=== PATIENT | male | born 1955 | race African-American/Black ===

== ENCOUNTER 2023-03-23 14:34 | Outpatient (REF) | payer MEDICARE, SELFPAY ==
[2023-03-23 15:20] LABS: Ammonia 46 umol/L (13-55)
[2023-03-23 15:35] LABS: Valproate 72.3 mcg/mL (50.0-100.0)
[2023-03-25 18:53] LABS: Levetiracetam Keppra 13.9 mcg/mL (6.0-46.0)
== END 2023-03-23 14:35 | disposition home or self-care (01) ==
LOC: HO.LAB 14:34
PROVIDERS: Visit Provider Psychiatry & Neurology Neurology
DX: G40.909 Epilepsy, unspecified, not intractable, without status epilepticus (principal); Z79.899 Other long term (current) drug therapy
CPT/HCPCS: 36415; 80164; 80177; 82140

== ENCOUNTER 2025-01-15 09:20 | Outpatient (AMB) | payer MEDICARE, SELFPAY ==
--- NOTE | 2025-01-15 09:37 | MHC.OFFVIS ---
Intake Visit Reasons: 6mnth/epilepsy Allergies No Known Allergies (No Known Allergies*) Allergy (Unverified 01/15/25 09:38) Medication List - Last Reconciled 01/15/25 by Mireille Montenegro CNP divalproex ER 500 mg PO BID levetiracetam 500 mg PO BID HPI Comments Details: 69-year-old man with epilepsy of unknown etiology with generalized seizures since was a teenage. Last seizure was in early 2023 after missing some doses of medication. He was doing okay. He was taking levetiracetam and Depakote twice a day. No missed doses or medication side effects. No seizures. Sleep was okay. Review of Systems Const Denies chills, Denies daytime sleepiness, Denies difficulty sleeping, Denies fatigue, Denies fever(s), Denies frequent falls, Denies headache(s), Denies increased appetite, Denies poor appetite, Denies snoring, Denies weakness, Denies weight gain and Denies weight loss Eyes Denies loss of vision ENT Denies vertigo, Denies dizziness and Denies headache(s) Card Denies chest pain at rest, Denies chest pain with activity, Denies syncope, Denies leg edema and Denies palpitations Resp Denies snoring GI Denies constipation, Denies heartburn, Denies diarrhea and Denies nausea Denies urinary frequency, Denies urinary incontinence and Denies urinary urgency Musc Denies abnormal gait, Denies numbness and Denies tingling Skin/Breast Denies dry skin and Denies rash Neuro Denies abnormal gait, Denies vertigo, Denies dizziness, Denies syncope, Denies frequent falls, Denies headache(s), Denies lack of coordination, Denies loss of vision, Denies memory loss, Denies numbness, Denies restless legs, Denies seizure-like activity, Denies tingling, Denies paresthesias, Denies tremor(s) and Denies weakness Psych Denies anxiety, Denies depression, Denies auditory hallucinations, Denies memory loss, Denies visual hallucinations and Denies suicidal ideation Endo Denies fatigue and Denies palpitations Physical Exam Const Other: General Appearance:? normal, in no acute distress. Skin:? no rashes, no significant birthmarks. Heart:? S1, S2 normal, no murmurs. Lungs:? clear anteriorly and posteriorly. Extremities:? no edema. Psych:? alert, oriented, cognitive function intact, cooperative with exam. Neuro Other: Mental Status:?Normal attention, orientation, memory and affect.? Cranial Nerves:?Pupils are equal, round and reactive to light. External occular muscles are intact. Visual cid are full. Face is symmetrical. Facial sensations are normal. Tongue is midline. Palate elevates symmetrically. Shoulder shrugging is normal. Hearing to bedside conversation is normal. Sensory Exam:?....? Coordination:?No ataxia,?no titubation.? Gait Exam: Within normal limits. Extrapyramidal System:?No tremor, rigidity with normal facial expressions.? Pronator Drift:?Not present.? Involuntary Movements:?No tremors seen.? Speech:?Normal.? Results Reviewed Results Reviewed: EEG at off in Mar 2023: WNL CT brain [place] [facility] [place]: mild cerebellar and cerebral atrophy CT C spine [place] [facility] [place] Nov [place]: No trauma Assessment & Plan Assessment & Plan (1) Epilepsy: Code(s): G40.909 - Epilepsy, unspecified, not intractable, without status epilepticus Category: Medical Qualifiers: Epilepsy type: unspecified Intractability: not intractable Status epilepticus: without status epilepticus Qualified Code(s): G40.909 - Epilepsy, unspecified, not intractable, without status epilepticus Plan: Continue levetiracetam 500mg 1 tablet twice a day. Continue Depakote ER 500mg 1 tablet twice a day. He was educated on the importance of medication compliance and risk associated with missed doses, including seizure. Follow up in 1 year or sooner as needed. Medications: New divalproex ER 500 mg PO BID 180 tabs 3RF 90 days levetiracetam 500 mg PO BID 180 tabs 3RF 90 days Coding Level of Care Code Est Pt Level 3 (88569) Diagnoses Nonintractable epilepsy without status epilepticus, unspecified epilepsy type G40.909 Epilepsy type: unspecified Intractability: not intractable Status epilepticus: without status epilepticus
--- OUTSIDE RECORDS SUMMARY | 2025-01-15 10:12 | XMS_ITS | Clinical Summary ---
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 Name Role Phone To Eduardo MD Primary Care Provider [phone] Allergies No known active allergies Encounters Date Type Department Care Team Description 11/29/2024 9:30 AM EDT Telemedicine Internal Medicine - [address] [id number] Encounter for subsequent annual wellness visit (AWV) in Medicare patient (Primary Dx) 11/27/2024 Telephone Internal Medicine - [address] [id number] Isi Das RN from Last 3 Months Surgical History Surgery Date Site/Laterality Comments COLONOSCOPY 01.25.12 PROCEDURE: HISTORICAL COLONOSCOPY Medical History Medical History Date Comments Epilepsy ([facility] V24, [facility] V28) 01/06/2015 DX:Epilepsy ([facility]) Depression 01/06/2015 DX:Depression Vitamin D deficiency 02/12/2015 DX:Vitamin D deficiency Family History Medical History Relation Name Comments No Known Problems Daughter Leukemia Mother Breast cancer Sister 1 No Known Problems Son Relation Name Status Comments Brother x 1, healthy Daughter Alive Father MVA trauma in l ate 30's Mother (Age 50) Sister 1 Alive Sister 2 Sister 3 Alive x 3, 2 healthy, 1 with pancreatitis Son Alive Social History Tobacco Use Types Packs/Day Years Used Date Smoking Tobacco: Every Day Cigarettes 0.3 50.9 Started: 03/07/1974 Smokeless Tobacco: Never Alcohol Use Standard Drinks/Week Comments No 0 (1 standard drink = 0.6 oz pur e alcohol) Housing Instability Answer Date Recorde d Are you worried that in the next 2 months you may not have stable housing? No 11/29/2024 Food Access & Nutrition Answer Date Rec orded Do you have access to a vari ety of food including fruits and vegetables? Yes 11/29/2024 Health Literacy Answer Date Recorded How often do you need to hav e someone help you when you read instructions, pamphlets, or other written material from your doctor or pharmacy? Never 11/29/2024 Caregiver: How often do you need to have someone help you when you read instructions, pamphlets, or other written material from your doctor or pharmacy? Not on file 11/29/2024 Financial Risk Answer Date Recorded How hard is it for you to pa y for the very basics like food, housing, medical care, and air conditioning / heating? Not very hard 11/29/2024 Transportation Answer Date Recorded Has the lack of transportati on kept you from meetings, work, or from getting things needed for daily living? No Has the lack of transportati on kept you from medical appointments or from getting medications? No 11/29/2024 Social Isolation Answer Date Recorded How often do you feel lonely or isolated from th ose around you? Never 11/29/2024 Food Risk Answer Date Recorded Within the past 12 months we worried whether our food would run out before we got money to buy more. Never true 11/29/2024 Within the past 12 months th e food we bought just didn't last and we didn't have money to get more. Never true 11/29/2024 Dependent Care Answer Date Recorded Do you need help finding or paying for care for your loved ones. For example, child's nurse or elderly care for an older adult? No 11/29/2024 Education Answer Date Recorded Do you think completing more education or training, like finishing a GED, going to college, or learning a trade, would be helpful for you? No 11/29/2024 Employment and Income Answer Date Recor ded During the last four weeks, have you been actively looking for work? No 11/29/2024 Living Situation Answer Date Recorded What is your living situation? Unrecognized valu e 11/29/2024 Sex and Gender Information Value Date Recorded Sex Assigned at Not on file Legal Sex Male 11:48 AM EST Gender Identity Not on file Sexual Orientation Not on file Obstetrics History Last Filed Vital Signs Vital Sign Reading Time Taken Comments Blood Pressure 130/74 12/01/2022 3:38 PM EDT Pulse 79 12/01/2022 3:38 PM EDT Temperature - - Respiratory Rate - - Oxygen Saturation - - Inhaled Oxygen Concentration - - Weight 77.8 kg (171 lb 9.6 oz) 12/01/2022 3:38 P M EDT Height 172.7 cm (5' 8 ) 12/01/2022 3:38 PM EDT Body Mass Index 26.09 12/01/2022 3:38 PM EDT Plan of Treatment Health Maintenance Due Date Last Done Comments Colorectal Cancer Screening: Colonoscopy 1955 Pneumococcal Vaccine: 50+ Years (1 of 2 - PCV) 1974 Zoster Vaccines (1 of 2) 2005 Abdominal Aortic Aneurysm (AAA) Screen 02/13/2022 Cholesterol Screening (Lipid Panel) 02/13/2022 Hepatitis C Screening 02/13/2022 COVID-19 Vaccine (4 - 2024-2 6 season) 2024 03/09/2021, 07/24/2020, 07/03/2020 Influenza Vaccine (#1) 2024 DTaP,Tdap,and Td Vaccines (3 - Td or Tdap) 01/06/2025 01/06/2015, 11/11/2009 Falls Risk Assessment 11/29/2025 11/29/2024 Medicare Annual Wellness Visit 11/29/2025 11/29/2024 Social Influencers of Health Screening 11/29/2025 11/29/2024 RSV Immunization Adult Patients (1 - 1-dose 75+ series) 2030 Depression Screening Completed 11/29/2024 HIB Vaccines Aged Out No longer eligi ble based on patient's age to complete this topic HPV Vaccines Aged Out No longer eligi ble based on patient's age to complete this topic Hepatitis A Vaccines Aged Out No long er eligible based on patient's age to complete this topic Hepatitis B Vaccines Aged Out No long er eligible based on patient's age to complete this topic IPV Vaccines Aged Out No longer eligi ble based on patient's age to complete this topic MMR Vaccines Aged Out No longer eligi ble based on patient's age to complete this topic Meningococcal ACWY Vaccine Aged Out N o longer eligible based on patient's age to complete this topic Meningococcal B Vaccine Aged Out No l onger eligible based on patient's age to complete this topic RSV Immunization Patients Under 20 months Aged Out No longer eligible b ased on patient's age to complete this topic Varicella Vaccines Aged Out No longer eligible based on patient's age to complete this topic Insurance [employer] MEDICARE Care Teams Mutuel Machine Operator Relationship Specialty Start Date End Date To Eduardo MD [address] [place] [id number] PCP - General Internal Medicine 11/06/24
== END 2025-01-15 09:45 | disposition home or self-care (01) ==
LOC: HO.HSM 09:21
PROVIDERS: PCP Internal Medicine; Referring Provider Internal Medicine; Visit Provider Registered Nurse
DX: G40.909 Epilepsy, unspecified, not intractable, without status epilepticus (principal)
CPT/HCPCS: 99213

== ENCOUNTER → 2025-01-15 09:20 | Outpatient (BNVA) | payer MEDICARE, SELFPAY | PROVIDERS: PCP Internal Medicine; Referring Provider Internal Medicine; Visit Provider Registered Nurse | DX: G40.909 Epilepsy, unspecified, not intractable, without status epilepticus (principal); Z79.899 Other long term (current) drug therapy | CPT/HCPCS: 99212 ==